=== PATIENT | male | born 1990 | race Hispanic/Latino ===

== ENCOUNTER 2017-11-18 16:20 | Emergency (ER) | payer SELFPAY ==
[2017-11-18 17:09] LABS: RAPID GROUP A STREP NEGATIVE (NEGATIVE)
== END 2017-11-18 17:36 | disposition home or self-care (01) ==
LOC: EDH 16:20
DX: J11.1 Influenza due to unidentified influenza virus with other respiratory manifestations (principal)
CPT/HCPCS: 87804; 87880